=== PATIENT | male | born 1975 | race American Indian/Alaskan Native ===

== ENCOUNTER 2021-06-09 14:25 | Emergency (ER) | payer SELFPAY ==
[2021-06-09] MEDS ORDERED: LOSARTAN 50 MG TAB PO ONE (15:05)
--- NOTE | 2021-06-09 15:13 | Emergency Department Report ---
ED ENT HPI - General Chief complaint: High BP Stated complaint: BP 184/104 / UPPER BACK PAIN/ BAD EAR ACHE Time Seen by Provider: 06/09/21 14:56 Source: patient Mode of arrival: Ambulatory Limitations: No Limitations - History of Present Illness Initial comments: Chief complaint: "My ear is stuffed up. My blood pressure is high." HPI: This is a 46-year-old male with history of hypertension who presents with left ear feeling "stopped up and elevated blood pressure. He recently was admitted to the hospital 3 to 4 weeks ago. He underwent cardiac exercise treadmill stress testing. Recently he has had upper shoulder pain. No pain at this time. Ear irrigation helped relieve the fullness feeling in his left ear. Today's home blood pressure monitor showed elevated blood pressure. Denies blurry vision, denies headache, denies for seizures. MD complaint: ear pain -: Gradual, days(s) (3 days) Location: L ear Severity: mild Quality: dull Consistency: constant Improves with: other (Irrigation) Worsens with: none - Related Data Home Medications Medication Instructions Recorded Confirmed Last Taken Aspirin 81 mg PO DAILY 06/09/21 06/09/21 06/09/21 AtorvaSTATin 20 mg PO DAILY 06/09/21 06/09/21 06/09/21 Clopidogrel 75 mg PO DAILY 06/09/21 06/09/21 06/09/21 Losartan 10 mg PO DAILY 06/09/21 06/09/21 06/09/21 Metoprolol 50 mg PO BID 06/09/21 06/09/21 06/09/21 ED Dental HPI - General Chief complaint: High BP Stated complaint: BP 184/104 / UPPER BACK PAIN/ BAD EAR ACHE Time Seen by Provider: 06/09/21 14:56 Source: patient Mode of arrival: Ambulatory Limitations: No Limitations - Related Data Home Medications Medication Instructions Recorded Confirmed Last Taken Aspirin 81 mg PO DAILY 06/09/21 06/09/21 06/09/21 AtorvaSTATin 20 mg PO DAILY 06/09/21 06/09/21 06/09/21 Clopidogrel 75 mg PO DAILY 06/09/21 06/09/21 06/09/21 Losartan 10 mg PO DAILY 06/09/21 06/09/21 06/09/21 Metoprolol 50 mg PO BID 06/09/21 06/09/21 06/09/21 ED Review of Systems ROS: Stated complaint: BP 184/104 / UPPER BACK PAIN/ BAD EAR ACHE Other details as noted in HPI Comment: All other systems reviewed and negative ED Past Medical Hx - Past Medical History Previous Medical History?: Yes Hx Hypertension: Yes - Family History Family history: hypertension - Social History Smoking Status: Former Smoker Substance Use Type: None - Medications Home Medications: Home Medications Medication Instructions Recorded Confirmed Last Taken Type Aspirin 81 mg PO DAILY 06/09/21 06/09/21 06/09/21 History AtorvaSTATin 20 mg PO DAILY 06/09/21 06/09/21 06/09/21 History Clopidogrel 75 mg PO DAILY 06/09/21 06/09/21 06/09/21 History Losartan 10 mg PO DAILY 06/09/21 06/09/21 06/09/21 History Metoprolol 50 mg PO BID 06/09/21 06/09/21 06/09/21 History ED Physical Exam - General Limitations: No Limitations General appearance: alert, in no apparent distress - Head Head exam: Present: atraumatic, normocephalic - Eye Eye exam: Present: normal appearance - ENT ENT exam: Present: mucous membranes moist, other (Left auditory canal: Filled with soft wax) - Neck Neck exam: Present: normal inspection, full ROM - Respiratory Respiratory exam: Present: normal lung sounds bilaterally. Absent: respiratory distress, wheezes, rales, rhonchi - Cardiovascular Cardiovascular Exam: Present: regular rate, normal rhythm, normal heart sounds. Absent: systolic murmur, diastolic murmur, rubs, gallop - GI/Abdominal GI/Abdominal exam: Present: soft, normal bowel sounds. Absent: distended, tenderness, guarding, rebound - Rectal Rectal exam: Present: deferred - Extremities Exam Extremities exam: Present: normal inspection - Neurological Exam Neurological exam: Present: alert, oriented X3, normal gait, other (No focal deficits) - Psychiatric Psychiatric exam: Present: normal affect, normal mood - Skin Skin exam: Present: warm, dry, intact, normal color. Absent: rash ED Course Vital Signs 06/09/21 14:52 Temperature 98.6 F Pulse Rate 66 Respiratory 18 Rate Blood Pressure 197/101 [Left] O2 Sat by Pulse 100 Oximetry ED Medical Decision Making - Medical Decision Making 1. Copious cerumen: Patient self treated with irrigation. I recommended that he continue irrigation. 2. Hypertensive urgency without endorgan damage: I have increased losartan dose to 50 mg. Critical care attestation.: If time is entered above; I have spent that time in minutes in the direct care of this critically ill patient, excluding procedure time. ED Disposition Clinical Impression: Impacted cerumen of left ear, Hypertensive urgency Disposition: TO HOME OR SELFCARE Is pt being admited?: No Does the pt Need Aspirin: No Condition: Stable Instructions: Earwax Buildup, Adult, Ear Irrigation, Managing Your Hypertension Referrals: MISAEL TOVAR MD [Staff Physician] - as needed
[2021-06-09 15:34] VITALS: BP 167/105
== END 2021-06-09 16:46 | disposition home or self-care (01) ==
LOC: ED 14:25
DX: H61.22 Impacted cerumen, left ear (principal); I16.0 Hypertensive urgency; I10 Essential (primary) hypertension; Z79.899 Other long term (current) drug therapy; Z87.891 Personal history of nicotine dependence
CPT/HCPCS: 99282